=== PATIENT | female | born 1955 | race Caucasian/White ===

== ENCOUNTER → 2021-02-02 | Outpatient (CLI) | payer OTHER ==
--- NOTE | 2021-02-02 14:51 | RAD ---
EXAM: Bilateral second finger 3 views. HISTORY: Bilateral second finger pain. COMPARISON: None. FINDINGS: On the left, there are changes of moderate to severe osteoarthritis with an erosive compone nt at the second distal interphalangeal joint. There is mild lateral subluxation of the distal phalan x. First carpometacarpal osteoarthritis is moderate to severe with multiple loose bodies. It is moder ate at the triscaphe articulation, mild at the first metacarpophalangeal joint and mild throughout th e remainder of the distal interphalangeal joints. On the right, there is moderate to severe osteoarthritis of the second distal interphalangeal joint w ith an erosive component. There is mild lateral subluxation of the distal phalanx. There are similar mild to moderate changes at the third and fifth rays. First carpometacarpal osteoarthritis is mild. I t is moderate at the triscaphe articulation and mild throughout the metacarpophalangeal joints. Mild flattening of the fourth metacarpal head may be post traumatic or reflect prior avascular necrosis. IMPRESSION: 1. 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 There is les ser involvement of the right third and fifth distal interphalangeal joints. 2. Additional osteoarthritis is up to moderate to severe at the left first carpometacarpal joint as d etailed above. Electronically signed by: Radha Todd MD (02/02/2021 2:49 PM) [id number]
== END ==
LOC: RAD 13:57
PROVIDERS: ATTEND Physician Assistant
DX: M19.042 Primary osteoarthritis, left hand (principal); M19.041 Primary osteoarthritis, right hand
CPT/HCPCS: 73140

== ENCOUNTER → 2021-03-25 | Day surgery (SDC) | payer OTHER ==
[~2021-03-25] MED LIST: LIDOCAINE 1%/EPI 1:100,000 20 ML VIAL. ONE; NEOMY/BACITR/POLYMYXIN OINT PACKET. TP ONE
[2021-03-25 09:11] VITALS: BP 136/84
--- NOTE | 2021-03-25 09:11 | PDOC4 ---
Operative Report DATE March 252020 at 908 Preop Diagnosis Right shoulder lipoma Post-op Diagnosis Same Operation Performed Excision of right shoulder lipoma Patient is 65-year-old female with complaint of enlarging mass of her right shoulder she previously had a lipoma removed many years ago. Procedure of excision was explained to the patient detail risk benefits were also discussed including bleeding infection alternatives to this procedure also discussed with the patient who seemed to understand and gave both verbal and written consent to have procedure performed. Patient was taken to the operating room placed in the left lateral decubitus positioning her right shoulder was prepped and draped usual sterile fashion using ChloraPrep. Area around the mass was injected with quarter percent Marcaine with epinephrine elliptical incision was made encompassing the previous scar this was excised as well as the lipomatous mass which was 4 cm the incision was 6 cm in length and margin of 1 cm. Wound was then closed 4-0 Monocryl subcuticular stitch Mastisol Steri-Strips and island dressing were applied. Patient tolerated procedure well was discharged home in stable condition all sponge instrument needle counts listed as correct estimated blood loss 5 mL Surgeon Papa ANESTHESIA PROPOSED: LOCAL Blood Loss 5 mL Specimen Right shoulder mass Complications None MEHRAN SALINAS MD Mar 25, 2021 09:11
--- NOTE | 2021-03-25 09:12 | DISCH ---
DISCHARGE INSTRUCTIONS-DC Condition on Discharge Condition on Discharge: Stable Activity after Discharge Activity Instructions for Disc: No restrictions Other activity instructions: May shower in 24 hours Diet after Discharge Diet after Discharge: Regular Contacting the DRRubio after DC Call your doctor for: If your condition worsens Follow-Up Follow up with: Dr. Salinas in 2 weeks MEHRAN SALINAS MD Mar 25, 2021 09:12
--- NOTE | 2021-03-30 17:07 | PATHOLOGY ---
[facility] Accession Number: [id number] . 01 Material submitted: . shoulder - RIGHT SHOULDER LIPOMA. Modifiers: right . 01 Clinical history: . EXCISION OF RIGHT SHOULDER LIPOMA . 02 Diagnosis: Skin and subcutaneous tissue, right shoulder lesion excision: - Lipoma. (ANUP:lakesha; 03/30/2021) MBAnthony 03/30/2021 1410 Local . 02 Comment: There is no evidence of malignancy. (JUAN ANTONIOM:lakesha; 03/30/2021) . 02 Electronically signed: . Esteban Medina MD, Pathologist NPI- [id number] . 01 Gross description: . Fixative: Formalin Labeled: Right shoulder lipoma Specimen received: Intact Dimensions: 6.4 x 4.2 x 2.1 cm with attached skin measuring 2.6 x 0.6 cm External surface: Lobular, gregorio-yellow with intact smooth translucent membrane Cut surface: Lobular, gregorio-yellow cut surface without hemorrhage or necrosis grossly identified . Chisel Grinder sections are submitted in A1-A3. ([facility]; 03/27/2021) GZA/GZA 03/30/2021 1410 Local . 02 Pathologist provided ICD-10: D17.39 . 02 CPT . 345307 Specimen Comment: A courtesy copy of this report has been sent to [phone] Specimen Comment: [id number] Specimen Comment: Report sent to / DR LAURENT Performed at: 01 [facility] [address], [place] [id number] MD Carson Nielson MD Phone: [phone] Performed at: 02 [facility] [id number] MD Esteban Medina MD Phone: [phone]
== END | disposition home or self-care (01) ==
LOC: SURG 08:21
PROVIDERS: ATTEND Surgery
DX: D17.21 Benign lipomatous neoplasm of skin and subcutaneous tissue of right arm (principal); D17.39 Benign lipomatous neoplasm of skin and subcutaneous tissue of other sites; Z98.891 History of uterine scar from previous surgery; Z98.890 Other specified postprocedural states; Z79.899 Other long term (current) drug therapy
CPT/HCPCS: 88304